=== PATIENT | male | born 1965 | race African-American/Black ===

== ENCOUNTER 2018-06-05 19:30 | Observation (INO) ==
[2018-06-05] MEDS ORDERED: ASPIRIN PO ONE (19:51)
--- NOTE | 2018-06-05 20:21 | Diag Imaging Result Doc PS360 ---
EXAM: CHEST-2 VIEWS HISTORY: ches pain TECHNIQUE: Chest two views COMPARISON: 03/04/2017 FINDINGS: The lungs are well expanded. The heart is not enlarged. The vessels are not distended. There are no infiltrates. No pleural effusions. IMPRESSION: No acute abnormality. Electronically signed by Ge Scruggs 06/05/2018 8:19 PM
[2018-06-05 20:49] LABS: BASO# 0.03 X1000 (0.0-0.2); BASO% 0.4 % (0.0-0.8); EOS# 0.07 X1000 (0.0-0.7); EOS% 0.9 % (0.0-10.0); HEMATOCRIT 49.6 % (42.0-52.0); HEMOGLOBIN 16.5 g/dL (14.0-18.0); IMM GRAN# 0.02 X1000 (0.0-0.04); IMM GRAN% 0.3 % (0.0-0.5); LYMPH# 2.53 X1000 (1.2-3.4); LYMPH% 31.7 % (20.5-51.1); MCH 30.7 PG (27-31); MCHC 33.3 g/dL (33-37); MCV 92.4 FL (81-99); MONO# 0.91 X1000 (0.11-0.59); MONO% 11.4 % (1.7-9.3); MPV 9.3 FL (7.4-10.4); NEUT# 4.41 X1000 (1.4-6.5); NEUT% 55.3 % (42.2-75.2); PLT 329 X1000 (130-400); RBC 5.37 XMIL (4.7-6.1); RDW 13.3 % (11.5-14.5); WBC 7.97 X1000 (4.8-10.8)
[2018-06-05 20:58] LABS: INR 0.97; PROTIME 13.7 Seconds (11.0-16.0)
[2018-06-05 20:59] LABS: PTT 27.3 Seconds (22.3-41.8)
[2018-06-05 21:37] LABS: AGAP 12; ALB/GLOB RATIO 1.4; ALBUMIN 4.6 g/dL (3.5-5.0); ALKALINE PHOSPHATASE 115 U/L (32-122); BUN 6 mg/dL (8-22); CALCIUM 9.7 mg/dL (8.8-10.2); CHLORIDE 101 mmol/L (98-107); CK PROFILE 140 U/L (24-204); COSMO 271; CREATININE 0.8 mg/dL (0.7-1.2); ESTIMATED GFR > 60; GLUCOSE 88 mg/dL (70-104); GOT 13 U/L (10-34); GPT 7 U/L (10-44); POTASSIUM 4.7 mmol/L (3.5-5.1); SODIUM 137 mmol/L (136-145); TCO2 24 mmol/L (25-35); TOTAL BILIRUBIN 0.51 mg/dL (0.20-1.00); TOTAL PROTEIN 7.9 g/dL (6.3-8.3)
[2018-06-05] MEDS ORDERED: TORADOL IV ONE (22:18)
[2018-06-05] MEDS ORDERED: NITROGLYCERIN TOP ONE (23:31)
[2018-06-05] MEDS ORDERED: ZOFRAN IV PRN (23:32)
[2018-06-05] MEDS ORDERED: NITROGLYCERIN SL PRN (23:32)
--- NOTE | 2018-06-05 23:35 | PROVIDER DOCUMENTATION ---
This chart was entered by Emma Felton Scribe, acting as scribe for Luis Turner MD. HPI-Chest Pain - General Chief Complaint: Chest Pain Stated Complaint: CHEST PAIN, DIZZY, HOT FLASHES, NAUSEA Time Seen by Provider: 06/05/18 22:12 Source: patient Allergies/Adverse Reactions: Patient Allergies Allergy/AdvReac Type Severity Reaction Status Date / Time acetaminophen [From Tylenol] AdvReac ITCHING Verified 03/04/17 22:09 Home Medications: Home Medication List Medication Instructions Recorded Confirmed Last Taken Type Gabapentin [Neurontin] 100 mg PO QHS #7 capsule 11/07/16 03/04/17 Unknown Rx Naftifine HCl [Naftin] 90 gm TP TID #1 gel..gram. 01/04/17 03/04/17 Unknown Rx - History of Present Illness-CP Nature of Presenting Problem: 53 yom presents to er w/co sweating, vomiting (since yesterday), back pain radiating into left chest and left arm x 3 days. pt states pain started when he was laying in bed and bent over. pt states cp makes him sob sometimes. pt has hx of asthma, dm (no meds), neuropathy and hiatial hernia and back sx x 2. Review of Systems - Adult - REVIEW OF SYSTEMS - ADULT Constitutional: reports: no symptoms reported Eyes: reports: no symptoms reported Ears, Nose, Mouth & Throat: reports: no symptoms reported Cardiovascular: reports: see HPI, chest pain. denies: irregular heart rate, poor circulation, PND Respiratory: reports: see HPI, shortness of breath (caused from cp). denies: cough, pleurisy, wheezing Gastrointestinal: reports: no symptoms reported, vomiting. denies: abdominal pain, constipation, diarrhea Genitourinary: reports: no symptoms reported Musculoskeletal: reports: see HPI, back pain. denies: joint swelling, muscle aches, neck pain Integumentary: reports: no symptoms reported Neurological: reports: no symptoms reported Psychiatric: reports: no symptoms reported Endocrine: reports: see HPI, excessive sweating. denies: increased hunger, increased thirst, polyuria Hematologic/Lymphatic: reports: no symptoms reported Allergic/Immunologic: reports: no symptoms reported All Other Systems: Reviewed and Negative Past History - Adult - PAST MEDICAL HISTORY-ADULT Review of Records: reports: Old Records Reviewed, Nursing Assessment Review, Medications Reviewed, Social history reviewed & non-contributory. Major Childhood Illnesses: reports: denies history Cardiovascular: reports: denies history Respiratory: reports: asthma Gastrointestinal: reports: colitis Obstetrical/Gynecological: reports: denies history Genitourinary: reports: kidney stones Musculoskeletal: reports: chronic pain Neurological: reports: denies history Psychiatric: reports: depression, schizophrenia (schizoaffective) Endocrine/Immune: reports: Diabetes Other Conditions: reports: other (neuropathy) - PRIOR SURGERIES/PROCEDURES Surgical/Procedure History: reports: back/neck (backx2) - PRIOR HOSPITALIZATIONS Prior Hospitalizations: reports: none - IMMUNIZATION STATUS Childhood Immunizations: See Nurse Assessment Flu Vaccine: See Nurse Assessment - FAMILY HISTORY Family History: reviewed, not pertinent - SOCIAL HISTORY Smoking: cigarettes, greater than 1 pack/day Substance Use: none presently/history of abuse, alcohol Alcohol Use Frequency: occasionally Physical Exam-General - PHYSICAL EXAM-ADULT Initial Vital Signs Reviewed: Yes - CONSTITUTIONAL General Appearance: appears well, alert, no apparent distress - EYES Eyes: PERRL/EOMI - HEAD, EARS, NOSE, MOUTH & THROAT HENMT: normocephalic/atraumatic, moist mucous membranes, normal ENT inspection - NECK Neck: non-tender, full range of motion, supple - RESPIRATORY Respiratory: chest non-tender, lungs clear, normal breath sounds - CARDIOVASCULAR Cardiovascular: normal peripheral pulses, regular rate, rhythm. negative: bradycardia, tachycardia, extra beats - CHEST (BREASTS) Chest/Breast: tenderness (left chest wall ten w/palp). 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 as tested, grossly normal, no motor/sensory deficits - PSYCHIATRIC Psych/Mental Status: normal mood/affect, normal thought content, normal thought process, oriented x 3 - HEART Score HEART Score: History: Moderately Suspicious HEART Score: ECG: Non-Specific Repolarization Disturbance/LBBB/PM HEART Score: Age: 45-65 Years HEART Score: Risk Factors for Atherosclerotic Disease: 1 or 2 Risk Factors HEART Score: Troponin: < or = Normal Limit Total HEART Score:: 4 Progress - PLAN OF CARE/RESULTS Progress/Plan/Lab Results: Vital Signs - 8 hr 06/05/18 19:40 06/05/18 22:18 06/05/18 22:33 Temperature 97.9 F Pulse Rate 73 70 59 L Respiratory Rate 15 20 19 Blood Pressure 146/92 156/86 O2 Sat by Pulse Oximetry 100 99 100 Laboratory Results - last 24 hr 06/05/18 06/05/18 06/05/18 20:15 20:15 20:15 WBC 7.97 RBC 5.37 Hgb 16.5 Hct 49.6 MCV 92.4 MCH 30.7 MCHC 33.3 RDW Std Deviation 13.3 Plt Count 329 MPV 9.3 Immature Gran % (Auto) 0.3 Neut % (Auto) 55.3 Lymph % (Auto) 31.7 Hoke % (Auto) 11.4 H Eos % (Auto) 0.9 Baso % (Auto) 0.4 Immature Gran # (Auto) 0.02 Neut # (Auto) 4.41 Lymph # (Auto) 2.53 Hoke # (Auto) 0.91 H Eos # (Auto) 0.07 Baso # (Auto) 0.03 PT INR PTT (Actin FS) Sodium 137 Potassium 4.7 Chloride 101 Carbon Dioxide 24 L Anion Gap 12 BUN 6 L Creatinine 0.8 Estimated GFR/1.73 m2 > 60 BUN/Creatinine Ratio 8 Glucose 88 Calculated Osmolality 271 Calcium 9.7 Total Bilirubin 0.51 AST 13 ALT 7 L Alkaline Phosphatase 115 Creatine Kinase 140 Troponin T Sqh-X-Cyeijofluuo Pept 86 Total Protein 7.9 Albumin 4.6 Globulin 3.3 Albumin/Globulin Ratio 1.4 06/05/18 06/05/18 20:15 20:15 WBC RBC Hgb Hct MCV MCH MCHC RDW Std Deviation Plt Count MPV Immature Gran % (Auto) Neut % (Auto) Lymph % (Auto) Hoke % (Auto) Eos % (Auto) Baso % (Auto) Immature Gran # (Auto) Neut # (Auto) Lymph # (Auto) Hoke # (Auto) Eos # (Auto) Baso # (Auto) PT 13.7 INR 0.97 PTT (Actin FS) 27.3 Sodium Potassium Chloride Carbon Dioxide Anion Gap BUN Creatinine Estimated GFR/1.73 m2 BUN/Creatinine Ratio Glucose Calculated Osmolality Calcium Total Bilirubin AST ALT Alkaline Phosphatase Creatine Kinase Troponin T < 0.010 Ndy-M-Zeahbrnyrzl Pept Total Protein Albumin Globulin Albumin/Globulin Ratio Orders Category Date Time Status Cardiac Monitoring DIRECTED Care 06/05/18 19:51 Active Oxygen Therapy- ED Nursing DIRECTED Care 06/05/18 19:51 Active Saline Loc NOW Care 06/05/18 19:51 Active CHEST-2 VIEWS [RAD] Stat Exams 06/05/18 19:51 Completed CBC WITH ELECTRONIC DIFF [HEME] Stat Lab 06/05/18 20:15 Completed CK PROFILE [SP CHEM] Stat Lab 06/05/18 20:15 Completed COMPREHENSIVE METABOLIC PANEL [CHEM] Stat Lab 06/05/18 20:15 Completed D-DIMER [COAG] Stat Lab 06/05/18 22:25 Ordered PRO B-NATRIURETIC PEPTIDE Stat Lab 06/05/18 20:15 Completed PROTIME WITH INR [COAG] Stat Lab 06/05/18 20:15 Completed PTT [COAG] Stat Lab 06/05/18 20:15 Completed TROPONIN T Stat Lab 06/05/18 20:15 Completed TROPONIN T Stat Lab 06/05/18 22:25 Ordered Aspirin Med 06/05/18 19:51 Discontinued 325 mg PO NOW ONE Ketorolac [Toradol] Med 06/05/18 22:18 Discontinued 15 mg IV NOW ONE CP/SOB/Palp >45 yrs of Age Stat Oth 06/05/18 19:51 Ordered EKG [EKG] NOW Ther 06/05/18 19:51 Ordered Result Diagrams: 06/05/18 20:15 06/05/18 20:15 - REASSESSMENT Reassessment #1 Time Reassessed: 23:20 (Dr. turner and hospitalist discussed pt being admitted to hospital.) Status: unchanged - EKG 1 Time of EKG reading by physician:: 19:46 EKG Read and Signed by:: Luis Turner Rate: 69 Rhythm: NSR Wann: normal QRS: normal KS Interval: normal ST Wave: normal Departure - Departure Date of Disposition Decision: 06/05/18 Time of Disposition Decision: 23:34 DIAGNOSIS: Chest pain Disposition: ADMITTED INPATIENT 09 Certified Medical Emergency: Emergent Condition: Fair Referrals and Follow-Ups: None,PCP [Primary Care Provider] - - Critical Care Note This patient required my direct & personal management of CC.: No Attestation - Physician/ MIGUE Attestation Patient care was provided by Advanced Practice Provider:: No The physician spent face to face time with patient:: Yes Advanced Practice Provider documentation review:: Supervising physician onsite and consulted in the evaluation and care of this patient. The physician did have a face to face encounter with the patient. This chart was documented by the indicated scribe, (Emma Felton Scribe) and accurately reflects the services I performed and decisions made by me, Luis Turner MD, as attested by the provider's signature.
[2018-06-05] MEDS ORDERED: LOVENOX SUBQ SCH (23:45)
--- NOTE | 2018-06-06 01:42 | HISTORY AND PHYSICAL ---
CHIEF COMPLAINT: Chest pain. HISTORY OF PRESENT ILLNESS: Briefly, Mr. Nicolas is a 53-year-old male with a history of diabetes mellitus type 2, hypertension, hyperlipidemia, asthma and schizoaffective disorder, who has had chest pain with nausea and vomiting for the past 3 days. From what I understand, the patient stopped taking his lisinopril because it was causing him to have an upset stomach. He has not returned to the doctor to receive any other medication for his hypertension. His blood pressure was mildly elevated on arrival. His chest pain has resolved at this time. He will be admitted and observed for further evaluation and treatment. PAST MEDICAL HISTORY: See HPI. PREVIOUS SURGICAL HISTORY: Titanium plate placed in head secondary to injury, 2 back surgeries. SOCIAL HISTORY: Disabled. Lives with . Smokes 4-5 cigarettes a day. Denies illicit drugs or alcohol. FAMILY HISTORY: Father had diabetes mellitus, coronary artery disease and ultimately with complications related to end-stage renal disease after he stopped taking dialysis. ALLERGIES: Tylenol and lisinopril. HOME MEDICATIONS: A list of home medications is unknown. Order was placed for Nursing to reconcile home medications. These can be restarted when appropriate. REVIEW OF SYSTEMS: Fourteen point review of systems conducted with the patient. Pertinent positives listed above in the HPI. All other systems reviewed and found to be negative. PHYSICAL EXAMINATION: VITAL SIGNS: Temperature 97.9, pulse 59, respirations 19, blood pressure 156/89, oxygen saturation 91% on room air. GENERAL: Pleasant 53-year-old male lying in the ER stretcher, answers all questions appropriately, is alert and oriented times 3. HEENT: Head is atraumatic, normocephalic. Pupils equal, round, reactive to light. Extraocular eye movement is intact. Sclerae are anicteric. Conjunctiva is pink. Oral mucosa is moist. NECK: Supple. No JVD. No thyromegaly. Trachea is midline. No cervical lymphadenopathy. CARDIAC: S1, S2 appreciated. No murmurs, gallops, or rubs. LUNGS: Clear to auscultation bilaterally. No rhonchi, wheezes, rales. Symmetric rise and fall with respirations. ABDOMEN: Soft, nondistended, nontender. Bowel sounds present all 4 quadrants, normoactive. No pulsatile mass. No organomegaly. EXTREMITIES: No clubbing, cyanosis, or edema. Two-plus pedal pulses bilaterally. GENITOURINARY: No bladder distention. Patient voids. Otherwise deferred. NEUROLOGICAL: Alert and oriented times 3. Cranial nerves II through XII appear to be grossly intact. INTEGUMENTARY: Warm, dry and intact. Normal turgor. Appropriate color for race. DIAGNOSTIC DATA: Chest x-ray: No acute abnormality. LABORATORY DATA: Within normal limits. CK and troponin negative times 1 set. ASSESSMENT AND PLAN: 1. Chest pain, rule out acute myocardial infarction. We will order stress test for tomorrow morning. NPO after midnight. One inch nitroglycerin paste now in the emergency room. Zofran as needed for nausea and vomiting. 2. Hypertension. We will use nitroglycerin at this time q.6 hours. The patient will need to be started on oral hypertensives. However, his goal is to be determined. We will defer to primary team dosing of medication. 3. Diabetes mellitus type 2. We will start on sliding scale insulin with fingerstick blood sugars q.a.c. and at bedtime. Check hemoglobin A1c. 4. Hyperlipidemia. Check lipid profile. If patient is not on statin, recommend starting one before discharge. Further recommendations per patient clinical course. Dictated by HARMEET Ellis for Wil Toledo MD cc: HARMEET Ellis MD I have seen and examined Ms Nicolas today. I have reviewed her labs and imaging studies. Ms Nicolas presents with chest pain with features concerning for ACS. I agree with the above HPI and the plan reflects my opinion discussed with the VISITOR SERVICES TECHNICIAN. Plan discussed with patient. [place] LOPEZ
[2018-06-06 02:49] LABS: UR AMPHETAMINES QUAL NONE DETECTED (NONE DETECT); UR BARBITUATES QUAL NONE DETECTED (NONE DETECT); UR BENZODIAZEPIN QUAL NONE DETECTED (NONE DETECT); UR CANNABINOIDS QUAL PRESUMPTIVE POSITIVE (NONE DETECT); UR COCAINE QUAL NONE DETECTED (NONE DETECT); UR METHADONE QUAL NONE DETECTED (NONE DETECT); UR OPIATES QUAL NONE DETECTED (NONE DETECT); UR OXYCODONE QUAL NONE DETECTED (NONE DETECT); UR PCP QUAL NONE DETECTED (NONE DETECT)
--- NOTE | 2018-06-06 06:45 | EKG Report ---
Test Performed on : 06/05/2018 7:46:04 PM Test Reason : chest pain Blood Pressure : / mmHG Vent. Rate : 069 BPM Atrial Rate : 069 BPM P-R Int : 152 ms QRS Dur : 078 ms QT Int : 396 ms P-R-T Axes : 035 009 038 degrees QTc Int : 424 ms Normal sinus rhythm. Normal ECG When compared with ECG of 04-MAR-2017 23:05, T wave amplitude has decreased in Anterior leads Unconfirmed Result
[2018-06-06] MEDS: NITROGLYCERIN TOP SCH ×2 (06:46→15:34)
[2018-06-06] MEDS: PRILOSEC PO SCH ×2 (06:46→15:35)
[2018-06-06 07:35] LABS: BASO# 0.02 X1000 (0.0-0.2); BASO% 0.3 % (0.0-0.8); EOS% 1.7 % (0.0-10.0); HEMATOCRIT 46.4 % (42.0-52.0); HEMOGLOBIN 15.5 g/dL (14.0-18.0); LYMPH# 2.07 X1000 (1.2-3.4); LYMPH% 34.9 % (20.5-51.1); MCHC 33.4 g/dL (33-37); MCV 92.8 FL (81-99); MONO# 0.76 X1000 (0.11-0.59); MONO% 12.8 % (1.7-9.3); MPV 9.4 FL (7.4-10.4); NEUT# 2.98 X1000 (1.4-6.5); NEUT% 50.3 % (42.2-75.2); PLT 309 X1000 (130-400); RDW 13.5 % (11.5-14.5); WBC 5.93 X1000 (4.8-10.8)
--- NOTE | 2018-06-06 07:56 | EKG Report ---
Test Performed on : 06/06/2018 06:28:50 AM Test Reason : CP Blood Pressure : / mmHG Vent. Rate : 066 BPM Atrial Rate : 066 BPM P-R Int : 142 ms QRS Dur : 078 ms QT Int : 446 ms P-R-T Axes : 074 028 069 degrees QTc Int : 467 ms Normal sinus rhythm. Normal ECG When compared with ECG of 05-JUN-2018 19:46, (Unconfirmed) No significant change was found Unconfirmed Result
[2018-06-06 08:06] LABS: AGAP 12; BUN 8 mg/dL (8-22); CALCIUM 8.3 mg/dL (8.8-10.2); CHLORIDE 103 mmol/L (98-107); COSMO 270; CREATININE 0.8 mg/dL (0.7-1.2); ESTIMATED GFR > 60; GLUCOSE 100 mg/dL (70-104); POTASSIUM 3.8 mmol/L (3.5-5.1); SODIUM 136 mmol/L (136-145); TCO2 21 mmol/L (25-35)
[2018-06-06] MEDS ORDERED: ASPIRIN PO SCH (09:00)
[2018-06-06] MEDS ORDERED: LEXISCAN ONE (11:08)
--- NOTE | 2018-06-06 13:43 | Diag Imaging Result Document ---
PROCEDURE NAME: MYOCARDIAL PERF SCAN, STR/REST - 06/06/2018 LEXISCAN CARDIOLITE STRESS TEST: Lexiscan was infused per standard protocol. There was no chest pain. Stress electrocardiogram was negative for ischemia. Following Lexiscan infusion, Cardiolite was injected. 12.8 mCi of Cardiolite was injected for the rest phase. 36.5 mCi of Cardiolite was injected for the stress phase. Gated SPECT images were obtained in standard views. Images revealed significant diaphragmatic and chest wall attenuation in addition to motion artifact. Left ventricular cavity size was normal. There is low-grade fixed defect in the inferoapical portion and in the base of the inferior wall. This is likely to represent attenuation defect. Low probability of scar. There is no evidence of ischemia. Left ventricular ejection fraction by gated SPECT was 66%. Wall motion was normal. CONCLUSIONS: 1. No chest pain. 2. Negative Lexiscan stress electrocardiogram. 3. Myocardial perfusion images reveal no evidence of ischemia. 4. There is low-grade fixed defect in the inferoapical and in the inferior base with significant chest wall and diaphragmatic attenuation associated with motion artifact. Low probability of scar. This is likely to represent attenuation defect. 5. Left ventricular ejection fraction 66%. cc: MD Rodney Celaya CRNP
[2018-06-06 15:26] VITALS: BP 129/83
--- NOTE | 2018-06-06 18:28 | DISCHARGE SUMMARY ---
ADMISSION DATE: 06/06/2018 DISCHARGE DATE: 06/06/2018 DISCHARGE DIAGNOSES: 1. Atypical chest pain. 2. Gastroesophageal reflux disease, hiatal hernia. 3. Hypertension. 4. Diabetes. HOSPITAL COURSE: Briefly, this is a 53-year-old male with multiple issues, complaining of abdominal discomfort. Blood pressure was not controlled on admission. He states that he is intolerant of his lisinopril due to GI issues, but the family states that he had a endoscopy about [address] Castro and was told he had a hiatal hernia at that time. In any case, he was placed in observation. His testing was negative. He did have some cannabinoids in his system, but other than that he was really stable. His heart rate and blood pressure have been pretty good since he has been here. He was admitted, ruled out. Myocardial perfusion imaging showed a low-grade fixed defect, which they felt was diaphragmatic attenuation. EF was 66%. He has an alternative diagnosis which is namely his hiatal hernia and GERD. We reviewed medications, aspiration precautions, GERD treatment and initiating Prilosec days twice a day and then daily subsequently. DISCHARGE CONDITION: Stable. Anticipate discharge soon. We will follow closely. cc: Alhaji Bo MD
[2018-06-06] MEDS ORDERED: REMERON PO SCH (21:00)
[2018-06-06] MEDS ORDERED: ZYPREXA PO SCH (21:00)
[2018-06-06] MEDS ORDERED: NEURONTIN PO SCH (21:00)
[2018-06-06] MEDS ORDERED: DESYREL PO SCH (21:00)
== END 2018-06-06 16:55 | disposition home or self-care (01) ==
LOC: 3N 19:30 → ED 19:30 → SUATTDRO 06-06 00:08
PROVIDERS: ATTEND Internal Medicine
CPT/HCPCS: 71020; 71046; 78452; 80048; 80053; 80061; 80101; 80301; 80307; 80324; 80345; 80346; 80353; 80358; 80361; 80365; 82550; 82948; 83721; 83880; 83992; 84484; 85025; 85379; 85610; 85730; 93005; 93017; 94760; 96372; 96374; 96375; 99285; A9270; A9500; G0378; G0431; G0434; G0479; G0480; J1650; J1885; J2405; J2785; XXXXX